=== PATIENT | male | born 1990 | race Caucasian/White ===

== ENCOUNTER 2020-01-30 17:17 | Emergency (ER) | payer SELFPAY ==
[~2020-01-30] VITALS: Ht 177.8 cm; Wt 75.3 kg
[2020-01-30 17:29] VITALS: BP 121/83; Ht 177.8 cm; Wt 75.3 kg
== END 2020-01-30 18:16 | disposition home or self-care (01) ==
LOC: ED 17:17
DX: S43.401A Unspecified sprain of right shoulder joint, initial encounter (principal); V00.131A Fall from skateboard, initial encounter; Y93.51 Activity, roller skating (inline) and skateboarding; Y92.89 Other specified places as the place of occurrence of the external cause; Y99.8 Other external cause status
CPT/HCPCS: J1885; Q0092